=== PATIENT | female | born 1945 | race Caucasian/White ===

== ENCOUNTER → 2016-11-09 | Outpatient (REF) | payer MEDICARE, OTHER ==
[2016-11-09 15:20] LABS: INR 0.99
== END ==
LOC: M LABDRAW1 14:40
PROVIDERS: ATTEND Physical Medicine & Rehabilitation
DX: Z79.01 Long term (current) use of anticoagulants (principal)

== ENCOUNTER → 2016-12-11 | Outpatient (REF) | payer MEDICARE, OTHER | LOC: M LABDRAW1 15:47 | PROVIDERS: ATTEND Physical Medicine & Rehabilitation | DX: M53.3 Sacrococcygeal disorders, not elsewhere classified (principal); Z79.899 Other long term (current) drug therapy | CPT/HCPCS: 36415; 80307; G0480 ==

== ENCOUNTER → 2017-01-25 | Outpatient (CLI) | payer MEDICARE, OTHER ==
[~2017-01-25] MED LIST: ALEV220T22 PO; BIOF4GEL2 TOP; BIOT1CAP2 PO; CENT1TAB PO; CO Q200C PO; CYCL5TA PO; LIDO5TD TD; TRAM50TA2 PO; TYLE325T5 PO; VAGI10TA PV; VITA1CAP2 PO; [UNRECOGNIZED DRUG - CODE] PV
[2017-01-25 12:04] LABS: MEAN CORPUSCULAR HEMOGLOBIN 30.8 pg (27.0-33.0); MEAN CORPUSCULAR HGB CONC 32.6 g/dl (32.0-36.5); MEAN CORPUSCULAR VOLUME 94.3 fl (80.0-96.0); RED CELL DISTRIBUTION WIDTH 12.3 % (11.5-14.5)
[2017-01-25 12:08] LABS: INR 0.95
[2017-01-25 12:42] LABS: ALBUMIN 3.5 GM/DL (3.2-5.2); ALBUMIN/GLOBULIN RATIO 1.06 (1.00-1.93); ALKALINE PHOSPHATASE 109 U/L (45-117); ALT/SGPT 27 U/L (12-78); ANION GAP 5 MEQ/L (8-16); AST/SGOT 17 U/L (15-37); BILIRUBIN,TOTAL 0.3 MG/DL (0.2-1.0); BLOOD UREA NITROGEN 16 MG/DL (7-18); CALCIUM LEVEL 9.7 MG/DL (8.8-10.2); CARBON DIOXIDE LEVEL 33 MEQ/L (21-32); CHLORIDE LEVEL 103 MEQ/L (98-107); CREATININE FOR GFR 0.69 MG/DL (0.55-1.02); GLOMERULAR FILTRATION RATE > 60.0 (>39); GLUCOSE, FASTING 75 MG/DL (83-110); SODIUM LEVEL 141 MEQ/L (136-145); TOTAL PROTEIN 6.8 GM/DL (6.4-8.2)
--- NOTE | 2017-01-25 12:53 | REP ---
PA and lateral chest: There are no comparisons. The lung vargas are clear. The cardiac size is normal The ananda, mediastinum, and bony thorax are unremarkable. Impression: Negative PA and lateral chest. Signed by Clovis Finley MD 01/25/2017 12:46 P
--- NOTE | 2017-01-25 18:43 | ECGEPIP ---
Stationary ECG Study [facility] Test Date: 2017-01-25 Pat Name: DORETHA YE Department: Room: - Gender: F [employer]: : [id number] Requested By: Ty Ho Order Number: [id number] Reading MD: Evgeny Rasheed Measurements Intervals [place] Rate: 66 P: 44 NV: 167 QRS: 59 QRSD: 90 T: 57 QT: 373 QTc: 393 Interpretive Statements SINUS RHYTHM Comparison tracing not on file Electronically Signed On 01-25-2017 18:42:56 EDT by Evgeny Rasheed
== END ==
LOC: M ADMPAT 10:21
PROVIDERS: ATTEND Orthopaedic Surgery
DX: M16.11 Unilateral primary osteoarthritis, right hip (principal); Z79.01 Long term (current) use of anticoagulants; R39.9 Unspecified symptoms and signs involving the genitourinary system

== ENCOUNTER 2017-02-08 07:30 | Inpatient (IN) | payer MEDICARE, OTHER ==
[2017-01-25 11:16] VITALS: BP 94/66
--- NOTE | 2017-02-06 11:16 | HPE ---
DATE OF ADMISSION: 02/08/2017 ATTENDING PHYSICIAN: Ty Ho MD CHIEF COMPLAINT: Right hip osteoarthritis. HISTORY: The patient is a 71-year-old female with progressively worsening right hip pain and stiffness. She has failed to improve with conservative measures. She continues to have pain with weightbearing activities and activities of daily living. The patient has consented for an elective total right hip arthroplasty with Dr. Ho. Medical optimization completed with Mr. Kaden PA-C. CURRENT MEDICATIONS: - gabapentin 100 mg three times daily - Aleve 220 mg two by mouth daily - Biotin 1 mg daily - CoQ10 200 mg daily - lidocaine 5% 12 hours on, 12 hours off of the left knee - vitamin D3 1000 units daily - Centrum Silver one daily - Biofreeze 4% as needed - Trimo-Pete 0.025% - Vagifem 10 mcg insert vaginally one time per week - Tylenol 325 mg 1-2 every 4-6 hours as needed for pain ALLERGIES: No known drug allergies. MEDICAL CONDITIONS: Arthritis, seasonal allergies, dermatitis, hyperlipidemia, uterine prolapse. SURGICAL HISTORY: Tonsillectomy, appendectomy, cholecystectomy, carpal tunnel release, arthroscopic surgery of the knee. SOCIAL HISTORY: The patient does not use tobacco products and rarely uses alcohol. REVIEW OF SYSTEMS: The patient denies fevers, chills, nausea, vomiting, or diarrhea. She denies chest pain, shortness of breath, headaches, or lightheadedness. She denies any recent upper respiratory infection or urinary tract infection symptoms. She does continue to have right hip pain with weightbearing activities. EXAMINATION: A well nourished, well developed female. In no apparent distress. NECK: Supple without lymphadenopathy or jugular venous distention (JVD). LUNGS: Clear to auscultation bilaterally. HEART: Regular rate and rhythm. ABDOMEN: Bowel sounds present. Abdomen soft and nontender to palpation. MUSCULOSKELETAL: Inspection of the right hip shows no gross abnormalities. Her skin is intact. The patient does have decreased flexion of the hip due to pain. There was hip irritability elicited with range of motion. Her calf is soft, nontender to palpation with no palpable cords noted. VITAL SIGNS: Height 5 feet 2-1/2 inches. Weight 141.2 pounds. Temperature 97.8. Blood pressure 115/60. Heart rate 52. Respirations 10. LABORATORY DATA: Chest x-ray: Negative PA and lateral chest film. Electrocardiogram (EKG): Sinus rhythm. Urinalysis: Negative with the exception of a trace amount of leukocyte esterase and 1+ bacteria. Urine culture: Shows no growth. Prothrombin time: 12.8. INR: 0.95. Comprehensive metabolic profile: Fasting glucose decreased at 75, BUN 16, creatinine for GFR 0.69. GFR greater than 60. Sodium 141, potassium 4.0, chloride 103, carbon dioxide increased at 33, anion gap decreased at 5, calcium 9.7, AST 17, ALT 27, alkaline phosphatase 109, total bilirubin 0.3, total protein 6.8, albumin 3.5, albumin globulin ratio 1.06. Complete blood count: WBC 7.0, RBC 4.03, hemoglobin 12.4, hematocrit 38, platelet count 310, erythrocyte sedimentation rate slightly elevated at 35. Nasal and sinus culture reveal normal robe. IMPRESSION: Right hip osteoarthritis with x-rays notable for end-stage degenerative changes. PLAN: The patient has consented for an elective right total hip arthroplasty with Dr. oH. YA
[~2017-02-08] VITALS: Ht 157.5 cm; Wt 76.1 kg
[2017-02-08] MEDS: MULTIVITAMINS/MINERALS THERAP 1 TAB PO SCH (09:00)
[2017-02-08] MEDS: VITAMIN D 1,000 INTERNATIONAL UNITS TABLET PO SCH (09:00)
[2017-02-08] MEDS ORDERED: BUPIVACAINE HCL 0.25% 30 ML VIAL As Ordered ONE (10:15)
[2017-02-08] MEDS ORDERED: ceFAZolin 1GM INJ (J0690) As Ordered ONE (10:16)
[2017-02-08] MEDS ORDERED: TRANEXAMIC ACID 100 MG/ML 10ML VIAL As Ordered ONE ×2 (11:40→15:04)
[2017-02-08] MEDS ORDERED: EPINEPHrine INJ 1 MG/ML 1ML VIAL/AMP As Ordered ONE ×2 (11:41→15:04)
[2017-02-08] MEDS ORDERED: ceFAZolin SOD 1 GM in D5W MINI-BAG PLUS 50 ML IV ONE (13:45)
[2017-02-08] MEDS ORDERED: LR 1,000 ML IV SCH ×4 (13:45→18:00)
[2017-02-08] MEDS ORDERED: CYCL5TA PO (14:37)
[2017-02-08] MEDS ORDERED: fentaNYL 100 MCG/2 ML INJECTION (J3010) As Ordered ONE ×2 (16:00→16:19)
[2017-02-08] MEDS ORDERED: MIDAZOLAM INJ 2 MG/2 ML VIAL (J2250) As Ordered ONE (16:19)
[2017-02-08] MEDS ORDERED: PROPOFOL 200 MG/20 ML VIAL As Ordered ONE (16:19)
[2017-02-08] MEDS ORDERED: LIDOCAINE 2% INJ 100 MG/5 ML SDV (FOR ANES.) As Ordered ONE (16:20)
[2017-02-08] MEDS ORDERED: ONDANSETRON 4MG/2ML VIAL (J2405) As Ordered ONE (16:20)
[2017-02-08] MEDS ORDERED: WARFARIN SOD 5 MG TAB PO ONE (17:00)
[2017-02-08] MEDS ORDERED: MORPHINE PCA 1MG/ML 100ML CADD As Ordered ONE (17:28)
[2017-02-08] MEDS ORDERED: PATIENT IS CURRENTLY ON AN ON-Q PAIN BUSTER PAIN RELIEF SYSTEM XX SCH (18:00)
[2017-02-08] MEDS ORDERED: ACETAMINOPHEN TAB 650MG DOSE (2X325MG) PO PRN (18:00)
[2017-02-08] MEDS ORDERED: NALBUPHINE HCL 10 MG/ML AMP (J2300) IV PRN (18:00)
[2017-02-08] MEDS ORDERED: MORPHINE 2 MG/ML 1ML SYRINGE IV PRN (18:00)
[2017-02-08] MEDS ORDERED: ONDANSETRON 4MG/2ML VIAL (J2405) IV PRN ×3 (18:00)
[2017-02-08] MEDS ORDERED: NALOXONE INJ 0.4 MG/1 ML VIAL (J2310) IV PRN (18:00)
[2017-02-08] MEDS ORDERED: FLEET ENEMA PR PRN (18:00)
[2017-02-08] MEDS ORDERED: diphenhydrAMINE INJ 50MG/ML VIAL (J1200) IV PRN (18:00)
[2017-02-08] MEDS ORDERED: PERCOCET 5MG/325MG TAB PO PRN (18:00)
[2017-02-08] MEDS ORDERED: EPIDURAL/PCA KEYS XX PRN (18:00)
[2017-02-08] MEDS ORDERED: MORPHINE PCA 1MG/ML 100ML CADD IV PRN (18:00)
[2017-02-08] MEDS ORDERED: METOCLOPRAMIDE INJ 10MG/2ML VIAL (J2765) IV PRN (18:00)
[2017-02-08] MEDS ORDERED: fentaNYL 100 MCG/2 ML INJECTION (J3010) IV PRN (18:00)
--- NOTE | 2017-02-08 18:15 | IPN ---
DATE: 02/08/2017 The patient was seen and examined in the preoperative area. She wishes to go ahead with . She is in significant constant pain of the right hip. She understands the nature of the procedure, the risks of bleeding, infection, damage to nerves, vessels, persistent pain, wear, loosening, dislocation, leg length inequality, blood clots, medical problems, , among others. Preoperative clearance was obtained.
[2017-02-08 19:00] VITALS: BP 137/79
[2017-02-08 19:30] VITALS: BP 139/68
[2017-02-08 19:36] LABS: MEAN CORPUSCULAR HEMOGLOBIN 32.1 pg (27.0-33.0); MEAN CORPUSCULAR HGB CONC 33.1 g/dl (32.0-36.5); MEAN CORPUSCULAR VOLUME 97.2 fl (80.0-96.0); RED CELL DISTRIBUTION WIDTH 13.1 % (11.5-14.5); WHITE BLOOD COUNT 6.6 K/mm3 (4.0-10.0)
--- NOTE | 2017-02-08 19:57 | CR.PDOC ---
[facility] Consultation Consultation DATE OF CONSULTATION: 02/08/17 PRIMARY CARE PHYSICIAN: Roberto Alfonso REFERRING PROVIDER: Dr. Ho ATTENDING PHYSICIAN: Dr. Ho REASON FOR CONSULTATION/CHIEF COMPLAINT: Medical comanagement HISTORY OF PRESENT ILLNESS: This is a 71-year-old female with a past medical history of hyperlipidemia, seasonal allergies, uterine prolapse, and dermatitis who presents for an elective right hip arthroplasty. We have been consulted for medical comanagement. Patient denies chest pain/shortness of breath/palpitations. No nausea/vomiting/ abdominal pain. States she feels well this time and denies any complaints. ALLERGIES: Please see below. HOME MEDICATIONS: Please see below. PAST MEDICAL HISTORY: As per [facility] PAST SURGICAL HISTORY: Tonsillectomy, cholecystectomy, appendectomy, carpal tunnel surgery, knee surgery. FAMILY HISTORY: Noncontributory SOCIAL HISTORY: Denies tobacco or illicit drug use. Occasional alcohol. REVIEW OF SYSTEMS: HEENT: Denies sore throat/headache CARDIOVASCULAR: Denies chest pain/palpitations RESPIRATORY: No shortness of breath/cough GASTROINTESTINAL: denies nausea/vomiting GENITOURINARY: Denies dysuria/urinary urgency. MUSCULOSKELETAL: Denies myalgias/arthralgias NEUROLOGICAL: Denies any focal weakness Rest of ROS negative. PHYSICAL EXAMINATION: Vitals: (see below) General: No acute distress, laying comfortably in bed. HEENT: Moist mucous membranes. Neck: No JVD or lymphadenopathy Cardiac: RRR, No murmurs Pulm: No wheezing or rhonchi Abd: NT/ND + BS Ext: Right hip with bandage intact. No bleeding. Minimal swelling. Pain controlled. Distal pulse intact. No cyanosis LABORATORY DATA: Please see below. ASSESSMENT/PLAN: 1. Postop day #0 status post right hip arthroplasty, pain management and DVT prophylaxis per orthopedics. 2. Hyperlipidemia-continue statin DVT prophylaxis- per orthopedics Patient was followed by Dr. Desir starting 02/09/17 at 7 AM. Vital Signs/I&O Vital Signs Date Time Temp Pulse Resp B/P (MAP) Pulse Ox O2 Delivery O2 Flow Rate FiO2 02/08/17 18:20 Nasal Cannula 2.0 02/08/17 18:06 61 100 02/08/17 18:05 96.8 16 120/61 (80) Laboratory Data CBC/BMP Laboratory Tests 5/4/17 19:24 Red Blood Count 3.69 L, Mean Corpuscular Volume 97.2 H, Mean Corpuscular Hemoglobin 32.1, Mean Corpuscular Hemoglobin Concent 33.1, Red Cell Distribution Width 13.1 Allergies Coded Allergies: No Known Allergies (Unverified , 01/25/17) Home Medications Scheduled (Co Q-10) 200 Mg Cap, 200 MG PO DAILY, (Reported) (Trimo-Pete) 0.025 % Gel, 0.025 % PV 2XWK, (Reported) Biotin (Vitamin H) (Biotin) 1 Mg Cap, 1 MG PO DAILY, (Reported) Cholecalciferol (Vitamin D-3) 1,000 Unit Cap, 1,000 UNIT PO DAILY, (Reported) Estradiol Hemihydrate (Vagifem) 10 Mcg Tab, 10 MCG PV QWEEK, (Reported) Multivitamins (Centrum Silver Adult 50+) 1 Tab Tab, 1 TAB PO DAILY, (Reported) Scheduled PRN (Aleve Arthritis) 220 Mg Tab, 440 MG PO DAILYPRN PRN for PAIN, (Reported) (Biofreeze) 4 % Gel, 4 % TOP PRN PRN for PAIN, (Reported) Acetaminophen (Tylenol) 325 Mg Tab, 650 MG PO Q4HP PRN for PAIN, (Reported) Cyclobenzaprine HCl (Cyclobenzaprine HCl) 5 Mg Tab, 5 MG PO Q8H PRN for PAIN, ( Reported) Lidocaine (Lidocaine) 5 % Pad, 1 % TD Q12HP PRN for PAIN, (Reported) Tramadol HCl (Tramadol HCl) 50 Mg Tab, 50 MG PO Q6HP PRN for PAIN, (Reported) FELICIANO MAY MD February 08, 2017 19:57
[2017-02-08 20:30] VITALS: BP 137/62
[2017-02-08] MEDS: ceFAZolin SOD 1 GM in D5W MINI-BAG PLUS 50 ML IV SCH (21:10)
[2017-02-08 21:30] VITALS: BP 130/63
[2017-02-08 22:30] VITALS: BP 125/68
[2017-02-09 02:00] VITALS: BP 121/57
[2017-02-09] MEDS: ceFAZolin SOD 1 GM in D5W MINI-BAG PLUS 50 ML IV SCH (05:15)
[2017-02-09 06:00] VITALS: BP 118/56
[2017-02-09] MEDS ORDERED: ONDANSETRON 4 MG TAB (S0181) PO PRN (06:45)
[2017-02-09 07:14] LABS: MEAN CORPUSCULAR HEMOGLOBIN 31.8 pg (27.0-33.0); MEAN CORPUSCULAR HGB CONC 33.6 g/dl (32.0-36.5); MEAN CORPUSCULAR VOLUME 94.4 fl (80.0-96.0); RED CELL DISTRIBUTION WIDTH 13.2 % (11.5-14.5); WHITE BLOOD COUNT 6.4 K/mm3 (4.0-10.0)
[2017-02-09 07:20] LABS: INR 1.08
[2017-02-09 07:36] LABS: ANION GAP 6 MEQ/L (8-16); BLOOD UREA NITROGEN 13 MG/DL (7-18); CALCIUM LEVEL 8.3 MG/DL (8.8-10.2); CARBON DIOXIDE LEVEL 29 MEQ/L (21-32); CHLORIDE LEVEL 105 MEQ/L (98-107); CREATININE FOR GFR 0.75 MG/DL (0.55-1.02); GLOMERULAR FILTRATION RATE > 60.0 (>39); GLUCOSE, FASTING 117 MG/DL (83-110); POTASSIUM SERUM 3.9 MEQ/L (3.5-5.1); SODIUM LEVEL 140 MEQ/L (136-145)
--- NOTE | 2017-02-09 07:43 | RO ---
DATE OF PROCEDURE: 02/08/2017 PREOPERATIVE DIAGNOSIS: Right hip osteoarthritis. POSTOPERATIVE DIAGNOSIS: Right hip osteoarthritis. PROCEDURE: Right total hip arthroplasty using a [place] size 4 high offset size 52 cup and a 32 ball +8.5. SURGEON: Dr. Ty Ho BEAR KEEPER: Henrique Malhotra ANESTHESIA: Spinal. ESTIMATED BLOOD LOSS: 200 COMPLICATIONS: None. INDICATIONS: This is a 71-year-old woman who has had gradually worsening right hip pain. She has severe arthritis on her x-ray and she failed conservative management and wished to go with a hip replacement. She understood the nature of the procedure, the risks of bleeding, infection, damage to nerves, vessels, persistent pain, wear, loosening, dislocation, leg length inequality, blood clots, medical problems, among others. She did have a little bit of shortening on this right side compared to the left preoperatively. PROCEDURE: The patient taken to the operative room and placed in the left lateral decubitus position on the [place] positioner. All areas were padded appropriately. The right hip was prepped and draped in usual sterile fashion. We performed a time-out. A incision was made over the lateral aspect the right hip and sharp dissection was carried down to subcutaneous tissue and controlled hemostasis with the cautery. I then sized the fascia aye and divided the anterior 40% of the abductor off the femur as we gradually externally rotated the hip and exposed the neck, divided the labrum and then dislocated the hip without much difficulty. I put the leg in the bag and we used the canal initiating reamer followed by the canal finding reamer and the lateralizing reamer and then was able to ream up to a size 4. The neck cut was made with a broach as a template and this was done about three-quarters of a fingerbreadth up from the lesser trochanter. We directed our attention to the acetabulum, anterior and posterior directors were placed, removed soft tissue from around the acetabulum and then sequentially reamed up to a size 51 reamer and was able to deepen, got into good bleeding surface in a good concentric reaming. She had a slightly deficient posterior wall preop prior to reaming but we were able to get a 52 cup in in a good position and well seated. [place] hole eliminator was placed, we placed the 32 x 52 liner, impacted this in place and then directed our attention back to the femur. We broached up to a size 4 which had a good fit and was down to the level of the cut. The trial next were then used and I did need a little bit of length, I tried the +5 then I tried the high offset +5, I actually ended up with an 8.5 high offset for excellent stability, soft tissue tension was appropriate, very good stability in extension, external rotation and flexion internal rotation. There was minimal shuck in full extension. I had irrigated prior to placement of the cup. I then irrigated prior to placement of the stem and impacted in the size 4 high offset [place] stem, a good fit was noted, it was well seated. I then placed the x 36 ball and impacted in place and was able to then reduced the hip without difficulty with the access services assistant's help and put the hip through range of motions, was very pleased with the stability and range of motion of the hip. I then irrigated copiously, repaired the minimus with #1 Vicryl suture. The abductor with #1 Vicryl suture with a couple stitches being placed through the bone. I irrigated the fascia aye with #1 Vicryl and then a running Stratafix suture in each direction with the access services assistant doing one half of this. Irrigated, closed subcutaneous 2-0 Vicryl, the skin with jah, the PainBuster catheter was inserted anteriorly just of the neck and attached appropriately. Sterile dressing was applied and I she was taken to recovery room in stable condition. There were no known complications. The plan will be routine postop. The access services assistant was instrumental in holding retractors and reducing and dislocating the hip and in wound closure.
[2017-02-09] MEDS: SENOKOT S TAB PO SCH ×2 (09:07→19:40)
[2017-02-09] MEDS: MULTIVITAMINS/MINERALS THERAP 1 TAB PO SCH (09:07)
[2017-02-09] MEDS: VITAMIN D 1,000 INTERNATIONAL UNITS TABLET PO SCH (09:07)
[2017-02-09] MEDS: MOM 30ML SUSPENSION UDC PO SCH (09:07)
[2017-02-09] MEDS: MIRALAX *UNIT DOSE* 17GM PACKET PO SCH (09:07)
[2017-02-09] MEDS: MORPHINE 15 MG SA TAB PO SCH ×3 (09:08→19:45)
[2017-02-09] MEDS: PERCOCET 5MG/325MG TAB PO PRN ×3 (10:54→19:40)
[2017-02-09] MEDS ORDERED: diphenhydrAMINE 25 MG CAP PO PRN (13:45)
[2017-02-09] MEDS: CYCLOBENZAPRINE 5MG TABLET PO PRN (14:22)
[2017-02-09] MEDS ORDERED: WARFARIN SOD 5 MG TAB PO ONE (17:00)
--- NOTE | 2017-02-09 18:04 | REP ---
RIGHT HIP: PRIORS: None. There has been total right hip prosthetic device placement. The femoral and acetabular components of which are well seated and well approximated. There is no evidence of an acute fracture or dislocation. There is expected postoperative soft tissue swelling. A lateral surgical skin staple line is seen in place. IMPRESSION: Status-post THR as described above. Signed by Kt Lam DO 02/09/2017 07:20 P
[2017-02-09 22:00] VITALS: BP 104/63
[2017-02-10] MEDS: PERCOCET 5MG/325MG TAB PO PRN ×2 (05:40→21:00)
[2017-02-10 06:00] VITALS: BP 117/58
[2017-02-10 07:27] LABS: MEAN CORPUSCULAR HEMOGLOBIN 31.3 pg (27.0-33.0); MEAN CORPUSCULAR HGB CONC 32.1 g/dl (32.0-36.5); MEAN CORPUSCULAR VOLUME 97.4 fl (80.0-96.0); RED CELL DISTRIBUTION WIDTH 13.1 % (11.5-14.5); WHITE BLOOD COUNT 8.7 K/mm3 (4.0-10.0)
[2017-02-10 07:35] LABS: INR 1.41
[2017-02-10 09:17] VITALS: BP 113/64
[2017-02-10] MEDS: VITAMIN D 1,000 INTERNATIONAL UNITS TABLET PO SCH (10:49)
[2017-02-10] MEDS: MIRALAX *UNIT DOSE* 17GM PACKET PO SCH (10:49)
[2017-02-10] MEDS: SENOKOT S TAB PO SCH ×2 (10:50→20:49)
[2017-02-10] MEDS: MULTIVITAMINS/MINERALS THERAP 1 TAB PO SCH (10:50)
[2017-02-10] MEDS: MOM 30ML SUSPENSION UDC PO SCH (10:50)
[2017-02-10] MEDS: MORPHINE 15 MG SA TAB PO SCH ×2 (11:26→20:49)
[2017-02-10] MEDS: CYCLOBENZAPRINE 5MG TABLET PO PRN (12:35)
[2017-02-10 14:56] VITALS: BP 119/57
[2017-02-10] MEDS ORDERED: WARFARIN SOD 5 MG TAB PO ONE (17:00)
[2017-02-10 22:00] VITALS: BP 113/56
[2017-02-11] MEDS: PERCOCET 5MG/325MG TAB PO PRN ×4 (01:33→21:18)
[2017-02-11 06:00] VITALS: BP 116/59
[2017-02-11] MEDS ORDERED: PERC5TAB6 PO (07:55)
[2017-02-11] MEDS ORDERED: COUM2.5T11 PO (07:55)
[2017-02-11 08:18] LABS: INR 1.58
[2017-02-11] MEDS: MIRALAX *UNIT DOSE* 17GM PACKET PO SCH (08:41)
[2017-02-11] MEDS: MOM 30ML SUSPENSION UDC PO SCH (08:41)
[2017-02-11] MEDS: SENOKOT S TAB PO SCH ×2 (08:42→21:00)
[2017-02-11] MEDS: VITAMIN D 1,000 INTERNATIONAL UNITS TABLET PO SCH (08:42)
[2017-02-11] MEDS: MORPHINE 15 MG SA TAB PO SCH ×2 (08:44→21:00)
[2017-02-11] MEDS: MULTIVITAMINS/MINERALS THERAP 1 TAB PO SCH (08:45)
[2017-02-11] MEDS ORDERED: WARFARIN SOD 5 MG TAB PO ONE (17:00)
[2017-02-11] MEDS: CYCLOBENZAPRINE 5MG TABLET PO PRN (21:14)
[2017-02-11 22:00] VITALS: BP 111/56
[2017-02-12 06:00] VITALS: BP 122/58
[2017-02-12 06:52] LABS: INR 1.71
[2017-02-12] MEDS: PERCOCET 5MG/325MG TAB PO PRN ×2 (08:58→16:08)
[2017-02-12] MEDS: VITAMIN D 1,000 INTERNATIONAL UNITS TABLET PO SCH (09:00)
[2017-02-12] MEDS: MOM 30ML SUSPENSION UDC PO SCH (09:00)
[2017-02-12] MEDS: MULTIVITAMINS/MINERALS THERAP 1 TAB PO SCH (09:00)
[2017-02-12] MEDS: MORPHINE 15 MG SA TAB PO SCH (09:00)
[2017-02-12] MEDS: SENOKOT S TAB PO SCH (09:00)
[2017-02-12] MEDS: MIRALAX *UNIT DOSE* 17GM PACKET PO SCH (09:00)
== END 2017-02-12 16:30 | disposition home health service (06) | DRG 470 ==
LOC: M OR 13:36 → M MS5PR 18:17
PROVIDERS: ADMIT Orthopaedic Surgery; ATTEND Orthopaedic Surgery
PROC: 0SR902Z Replacement of Right Hip Joint with Metal on Polyethylene Synthetic Substitute, Open Approach (ICD-10-PCS; principal; 2017-02-08 16:20)
DX: M16.11 Unilateral primary osteoarthritis, right hip (principal); Z79.899 Other long term (current) drug therapy; E78.5 Hyperlipidemia, unspecified

== ENCOUNTER → 2017-02-15 | Outpatient (REF) | payer MEDICARE, OTHER ==
[~2017-02-15] MED LIST changes: +COUM2.5T11 PO; +PERC5TAB6 PO
[2017-02-15 13:53] LABS: INR 1.3
== END ==
LOC: M SHH 13:33
PROVIDERS: ATTEND Nurse Practitioner Family
DX: Z79.01 Long term (current) use of anticoagulants (principal)

== ENCOUNTER → 2017-02-19 | Outpatient (REF) | payer MEDICARE, OTHER ==
[2017-02-19 13:50] LABS: INR 1.24
== END ==
LOC: M SHH 12:58
PROVIDERS: ATTEND Nurse Practitioner Family
DX: Z79.01 Long term (current) use of anticoagulants (principal)

== ENCOUNTER → 2017-02-22 | Outpatient (REF) | payer MEDICARE, OTHER ==
[2017-02-22 12:07] LABS: INR 1.24
== END ==
LOC: M SHH 11:23
PROVIDERS: ATTEND Nurse Practitioner Family
DX: Z79.01 Long term (current) use of anticoagulants (principal)

== ENCOUNTER → 2017-02-26 | Outpatient (REF) | payer MEDICARE, OTHER ==
[2017-02-26 12:32] LABS: INR 1.39
== END ==
LOC: M SHH 12:10
PROVIDERS: ATTEND Nurse Practitioner Family
DX: Z79.01 Long term (current) use of anticoagulants (principal)

== ENCOUNTER → 2017-04-19 | Outpatient (CLI) | payer MEDICARE, OTHER ==
[~2017-04-19] MED LIST changes: -CO Q200C PO; +CO Q200C10 PO; -COUM2.5T11 PO; +COUM2.5T17 PO; -CYCL5TA PO; +CYCL5TAB PO; +PERC5TAB12 PO; -PERC5TAB6 PO
--- NOTE | 2017-04-19 14:47 | REPMRS ---
Patient History The patient states she has not had a clinical breast exam in over a year. Patient is postmenopausal. Family history of unknown cancer in father, breast cancer in sister under age 50, breast cancer in 2 maternal aunts under age 50, breast cancer in maternal grandmother, and breast cancer in maternal cousin at age 50 or over. Took hormonal contraceptives for 2 years. Took unspecified hormones for 6 months. Patient states she has lost about 15lbs since her last mammogram due to hip surgery Digital Mammo Screening Bilat: April 19, 2017 - Exam #: [id number] Bilateral CC and MLO view(s) were taken. Technologist: Gretchen Richardson, Technologist Prior study comparison: December 28, 2015, digital bilateral screening mammo, performed at [facility]. December 23, 2014, bilateral digital mammo screening bilat performed at [facility]. FINDINGS: There are scattered fibroglandular densities. There has been no change in the appearance of the mammogram from the prior studies. There is a mild amount of residual fibroglandular tissue which is fairly symmetric. There is no interval development of dominant mass, architectural distortion, or clustered microcalcification suggestive of malignancy. ASSESSMENT: BI-RADS/ACR category 1 mammogram. Negative. Recommendation Routine screening mammogram in 1 year (for women over age 40). This mammogram was interpreted with the aid of an FDA-approved computer-aided dectection system. Electronically Signed By: Clovis Martins MD 04/19/17 [id number]
== END ==
LOC: M RAD 13:55
DX: Z12.31 Encounter for screening mammogram for malignant neoplasm of breast (principal)

== ENCOUNTER → 2017-06-05 | Outpatient (CLI) | payer MEDICARE, OTHER ==
--- NOTE | 2017-06-05 15:01 | REP ---
Whole body radionuclide bone scan: History: Spondylolisthesis. Comparison bone scan is from May 2007. Technique: 22.0 mCi of technetium 99m MDP is injected and standard whole body imaging is acquired. Scintigraphic findings: There is photopenia in the region of the right femoral head and some linear increased uptake pattern in the proximal femur on the right related to right hip replacement. There is minimal arthritic uptake in the knees and in the first MTP joints of each foot. Otherwise, distribution of skeletal tracer is normal. Mild degenerative uptake is seen in the lumbosacral spine and thoracic spine. There is mild arthritic uptake in the shoulders. Impression: No evidence to suggest skeletal metastatic disease. Osteoarthritic uptake pattern. Status post right hip replacement. Signed by Porter Davey MD 06/05/2017 05:18 P
== END ==
LOC: M RAD 10:00
PROVIDERS: ATTEND Physical Medicine & Rehabilitation
DX: M43.16 Spondylolisthesis, lumbar region (principal)
CPT/HCPCS: 78306; A9503

== ENCOUNTER → 2018-07-09 | Outpatient (CLI) | payer MEDICARE, OTHER ==
[~2018-07-09] MED LIST changes: -ALEV220T22 PO; -BIOF4GEL2 TOP; -BIOT1CAP2 PO; -CENT1TAB PO; -CO Q200C10 PO; -COUM2.5T17 PO; -CYCL5TAB PO; +GASTROGRAFIN SOLUTION 30ML (Q9963) As Ordered; +ISOVUE-370 76% 100ML VIAL (Q9967) As Ordered; -LIDO5TD TD; -PERC5TAB12 PO; -TRAM50TA2 PO; -TYLE325T5 PO; -VAGI10TA PV; -VITA1CAP2 PO; -[UNRECOGNIZED DRUG - CODE] PV
== END ==
LOC: M RAD 13:18
DX: R10.31 Right lower quadrant pain (principal)
CPT/HCPCS: Q9963

== ENCOUNTER 2018-09-03 09:25 | Day surgery (SDC) | payer MEDICARE, OTHER ==
[2018-09-03] MEDS: NS 1,000 ML IV (06:30)
[2018-09-03] MEDS ORDERED: LIDOCAINE 2% INJ 100 MG/5 ML SDV (FOR ANES.) As Ordered (09:47)
[2018-09-03] MEDS ORDERED: PROPOFOL 200 MG/20 ML VIAL As Ordered (09:47)
[2018-09-03] MEDS ORDERED: GLYCOPYRROLATE INJ 0.2 MG/ML 2 ML VIAL As Ordered (11:05)
== END 2018-09-03 11:41 | disposition home or self-care (01) ==
LOC: M OPP 09:25
DX: Z12.11 Encounter for screening for malignant neoplasm of colon (principal); K64.0 First degree hemorrhoids; K57.30 Diverticulosis of large intestine without perforation or abscess without bleeding; M19.90 Unspecified osteoarthritis, unspecified site; Z86.010 Personal history of colon polyps; Z79.899 Other long term (current) drug therapy; Z86.19 Personal history of other infectious and parasitic diseases; Z98.890 Other specified postprocedural states
CPT/HCPCS: G0105

== ENCOUNTER → 2019-02-10 | Outpatient (CLI) | payer MEDICARE, OTHER ==
[~2019-02-10] MED LIST changes: +ALEV220T22 PO; +BIOF4GEL2 TOP; +BIOT1CAP2 PO; +CENT1TAB PO; +CO Q200C10 PO; +COLA100C5 PO; +COUM2.5T17 PO; +CYCL5TAB PO; +FLAX10005 PO; +GABA-1171 PO; -GASTROGRAFIN SOLUTION 30ML (Q9963) As Ordered; +HYDR1CRE28 PR; -ISOVUE-370 76% 100ML VIAL (Q9967) As Ordered; +LIDO5TD TD; +LORA-243 PO; +MIRA3350 PO; +PERC5TAB12 PO; +TRAM50TA2 PO; +TYLE325T5 PO; +VAGI10TA PV; +VITA-183 PO; +[UNRECOGNIZED DRUG - CODE] PV; +flaxseed PO
--- NOTE | 2019-02-12 12:29 | REPMRS ---
Patient History The patient states she had a clinical breast exam in January 2019.Family history of breast cancer under age 50 in sister, breast cancer under age 50 in maternal aunt, breast cancer in maternal grandmother, unknown cancer in father, breast cancer at age 50 or over in maternal aunt, breast cancer at age 50 or over in maternal cousin. Took hormonal contraceptives for 2 years. Took unspecified hormones for 6 months. No breast complaints. Digital Mammo Screening Bilat: February 10, 2019 - Exam #: [id number] Bilateral CC and MLO view(s) were taken. Technologist: Radha Evangelista, Technologist Prior study comparison: April 19, 2017, bilateral digital mammo screening bilat performed at [facility]. December 28, 2015, digital bilateral screening mammo, performed at [facility]. December 23, 2014, bilateral digital mammo screening bilat performed at [facility]. FINDINGS: There are scattered fibroglandular densities. There has been no change in the appearance of the mammogram from the prior studies. There is a mild amount of scattered fibroglandular density which is fairly symmetric. There is no interval development of dominant mass, architectural distortion, or clustered microcalcification suggestive of malignancy. 3-D tomosynthesis shows no additional findings. Assessment: BI-RADS/ACR category 1 mammogram. Negative Mammogram. Recommendation Routine screening mammogram of both breasts in 1 year (for women over age 40). This patient's Lifetime Breast Cancer RIsk is estimated at 10.8 %. This mammogram was interpreted with the aid of an FDA-approved computer-aided dectection system. Electronically Signed By: Andrew Davey MD 02/12/19 [id number]
== END ==
LOC: M RAD 13:16
DX: Z12.31 Encounter for screening mammogram for malignant neoplasm of breast (principal); Z80.3 Family history of malignant neoplasm of breast; Z92.0 Personal history of contraception

== ENCOUNTER → 2019-05-21 | Outpatient (CLI) | payer MEDICARE, OTHER ==
--- NOTE | 2019-05-21 14:09 | REP ---
Right hand series: Five views. History: Crush injury evaluation. Findings: Five views of the right hand demonstrate mild widening of the navicular lunate interval consistent with degeneration of that ligament. There is osteoarthritis at the first carpometacarpal articulation and in the first IP and first MCP joints. There are mild spurring changes in the DIP joints of the index and long finger. No fractures seen. Impression: No fracture or subluxation seen. Degenerative changes as noted above. Electronically Signed by Porter Davey MD 05/21/2019 02:01 P
== END ==
LOC: M LRY 13:11
PROVIDERS: ATTEND Nurse Practitioner Family
DX: M19.041 Primary osteoarthritis, right hand (principal); S69.91XA Unspecified injury of right wrist, hand and finger(s), initial encounter; W23.0XXA Caught, crushed, jammed, or pinched between moving objects, initial encounter; Y92.9 Unspecified place or not applicable
CPT/HCPCS: 73130; G0463

== ENCOUNTER → 2019-07-02 | Outpatient (REF) | payer MEDICARE, OTHER ==
[2019-07-02 17:15] LABS: BLOOD UREA NITROGEN 20 MG/DL (7-18); CALCIUM LEVEL 9.6 MG/DL (8.8-10.2); CARBON DIOXIDE LEVEL 29 MEQ/L (21-32); CHLORIDE LEVEL 107 MEQ/L (98-107); CREATININE FOR GFR 0.74 MG/DL (0.55-1.30); GLOMERULAR FILTRATION RATE > 60.0 (>39); GLUCOSE, FASTING 75 MG/DL (70-100); POTASSIUM SERUM 4.4 MEQ/L (3.5-5.1); SODIUM LEVEL 143 MEQ/L (136-145)
[2019-07-02 17:16] LABS: VITAMIN B12 LEVEL 811 PG/ML (247-911)
[2019-07-02 17:22] LABS: BASO % 0.5 % (0.0-1.0); EOS # 0.2 10^3/uL (0.0-0.5); EOS % 4.1 % (0.0-3.0); HEMATOCRIT 41.6 % (36.0-47.0); HEMOGLOBIN 13.6 g/dl (12.0-15.5); LYMPH # 1.6 10^3/uL (1.5-5.0); MEAN CORPUSCULAR HEMOGLOBIN 31.5 pg (27.0-33.0); MEAN CORPUSCULAR HGB CONC 32.7 g/dl (32.0-36.5); MEAN CORPUSCULAR VOLUME 96.3 fl (80.0-96.0); MONO # 0.4 10^3/uL (0.0-0.8); MONO % 6.8 % (0.0-5.0); NEUTROPHILS # 3.6 10^3/uL (1.5-8.5); NEUTROPHILS % 61.4 % (36.0-66.0); PLATELET COUNT, AUTOMATED 261 10^3/uL (150-450); RED BLOOD COUNT 4.32 10^6/uL (4.00-5.40); WHITE BLOOD COUNT 5.9 10^3/uL (4.0-10.0)
== END ==
LOC: M SFHCLERA 10:06
PROVIDERS: ATTEND Family Medicine
DX: R41.3 Other amnesia (principal)
CPT/HCPCS: 80048; 82607; 84443; 85025; 86592; 86780; G0463

== ENCOUNTER → 2019-07-18 | Outpatient (REF) | payer MEDICARE, OTHER | LOC: M SFHCLERA 10:51 | PROVIDERS: ATTEND Family Medicine | DX: A53.0 Latent syphilis, unspecified as early or late (principal); Z79.899 Other long term (current) drug therapy ==

== ENCOUNTER → 2019-07-25 | Outpatient (REF) | payer MEDICARE, OTHER | LOC: M SFHCLERA 13:02 | PROVIDERS: ATTEND Family Medicine | DX: A53.0 Latent syphilis, unspecified as early or late (principal) ==

== ENCOUNTER → 2019-08-04 | Outpatient (CLI) | payer MEDICARE, OTHER ==
[2019-08-04 17:49] LABS: BASO % 0.1 % (0.0-1.0); EOS # 0.2 10^3/uL (0.0-0.5); EOS % 2.7 % (0.0-3.0); HEMATOCRIT 39.7 % (36.0-47.0); HEMOGLOBIN 12.9 g/dl (12.0-15.5); LYMPH # 1.7 10^3/uL (1.5-5.0); MEAN CORPUSCULAR HEMOGLOBIN 30.9 pg (27.0-33.0); MEAN CORPUSCULAR HGB CONC 32.5 g/dl (32.0-36.5); MEAN CORPUSCULAR VOLUME 95.2 fl (80.0-96.0); MONO # 0.4 10^3/uL (0.0-0.8); MONO % 5.2 % (0.0-5.0); NEUTROPHILS # 4.5 10^3/uL (1.5-8.5); NEUTROPHILS % 66.6 % (36.0-66.0); PLATELET COUNT, AUTOMATED 287 10^3/uL (150-450); RED BLOOD COUNT 4.17 10^6/uL (4.00-5.40); WHITE BLOOD COUNT 6.8 10^3/uL (4.0-10.0)
[2019-08-04 17:52] LABS: ALBUMIN 3.6 GM/DL (3.2-5.2); ALT/SGPT 24 U/L (12-78); BILIRUBIN,TOTAL 0.5 MG/DL (0.2-1.0); BLOOD UREA NITROGEN 19 MG/DL (7-18); CARBON DIOXIDE LEVEL 27 MEQ/L (21-32); CHLORIDE LEVEL 107 MEQ/L (98-107); GLOMERULAR FILTRATION RATE > 60.0 (>39); GLUCOSE, FASTING 92 MG/DL (70-100); POTASSIUM SERUM 4.3 MEQ/L (3.5-5.1); RHEUMATOID FACTOR QUANT < 10.0 IU/ML (<15.0); SODIUM LEVEL 141 MEQ/L (136-145); TOTAL PROTEIN 6.4 GM/DL (6.4-8.2)
[2019-08-04 17:54] LABS: TOTAL 25(OH) VITAMIN D 48.9 NG/ML (30.0-100.0); VITAMIN B12 LEVEL 685 PG/ML (247-911)
[2019-08-04 17:56] LABS: FOLATE > 24.0 NG/ML (>5.4)
[2019-08-04 20:18] LABS: ERYTHROCYTE SEDIMENTATION RATE 7 mm/hr (0-30)
[2019-08-05 10:16] LABS: DRVV SCREEN 34.8 SEC
[2019-08-05 10:18] LABS: PTT LUPUS TYPE ANTICOAG SCREEN 0.8 (0-1.2)
[2019-08-07 00:07] LABS: IgG P18 AB Absent (.); IgG P23 AB Present (.); IgG P28 AB Absent (.); IgG P30 AB Absent (.); IgG P39 AB Absent (.); IgG P41 AB Absent (.); IgG P45 AB Absent (.); IgG P66 AB Absent (.); IgG P93 AB Absent (.); IgM P23 AB Absent (.); IgM P39 AB Absent (.); IgM P41 AB Absent (.); LYME IgG WB INTERPRETATION Negative (.); LYME IgM WB INTERPRETATION Negative (.)
[2019-08-10 00:06] LABS: ANTINUCLEAR ANTIBODIES DIRECT Negative (Negative); Lyme Disease IgG/IgM Antibodie <0.91 ISR (0.00-0.90); Lyme Disease IgM Ab Quantitati <0.80 index (0.00-0.79); VITAMIN B1 LEVEL WHOLE BLOOD 146.3 nmol/L (66.5-200.0); VITAMIN E(ALPHA TOCOPHEROL) 15.8 mg/L (9.0-29.0); VITAMIN E(GAMMA TOCOPHEROL) 0.8 mg/L (0.5-4.9)
== END ==
LOC: M LRY 10:59
PROVIDERS: ATTEND Psychiatry & Neurology Neurology
DX: R41.3 Other amnesia (principal); Z79.899 Other long term (current) drug therapy

== ENCOUNTER → 2019-10-24 | Outpatient (CLI) | payer MEDICARE, OTHER ==
--- NOTE | 2019-11-04 15:23 | DEXA ---
AP SPINE L1 - L4 1.395 1.6 3.3 LT FEMUR TOTAL 1.040 0.3 1.9 LT NECK 0.905 -1.0 0.9 RT FEMUR TOTAL Right hip replacement RT NECK Right hip replacement TOTAL BODY TOTAL OTHER COMMENTS: Normal bone densitometry of the spine. There is low bone density of the left hip. The density of the spine has decreased 1.4% since the initial exam on 07/29/2001. The spine density has decreased 1.4% since the most recent exam on 09/21/2005. The density of the left hip has decreased 4.1% since initial exam on 07/29/2001. The density of the left hip has decreased 6.1% since the most recent exam on 09/21/2005. Right hip replacement. FOLLOW-UP: Recommendation for the next bone density exam: 2 years. YA
== END ==
LOC: M WHC 12:50
PROVIDERS: ATTEND Family Medicine
DX: Z13.820 Encounter for screening for osteoporosis (principal); M81.0 Age-related osteoporosis without current pathological fracture

== ENCOUNTER → 2020-06-24 | Outpatient (CLI) | payer MEDICARE, OTHER ==
[2020-06-24 15:42] LABS: BASO % 0.3 % (0.0-1.0); EOS # 0.4 10^3/uL (0.0-0.5); EOS % 6.4 % (0.0-3.0); HEMOGLOBIN 12.9 g/dl (12.0-15.5); LYMPH # 2.3 10^3/uL (1.5-5.0); MEAN CORPUSCULAR HEMOGLOBIN 31.2 pg (27.0-33.0); MEAN CORPUSCULAR HGB CONC 33.1 g/dl (32.0-36.5); MEAN CORPUSCULAR VOLUME 94.2 fl (80.0-96.0); MONO # 0.4 10^3/uL (0.0-0.8); MONO % 7.2 % (0.0-5.0); NEUTROPHILS % 48.9 % (36.0-66.0); PLATELET COUNT, AUTOMATED 262 10^3/uL (150-450); RED BLOOD COUNT 4.14 10^6/uL (4.00-5.40); WHITE BLOOD COUNT 6.1 10^3/uL (4.0-10.0)
[2020-06-24 16:21] LABS: ALBUMIN 3.7 GM/DL (3.2-5.2); ALT/SGPT 30 U/L (12-78); BILIRUBIN,TOTAL 0.3 MG/DL (0.2-1.0); BLOOD UREA NITROGEN 27 MG/DL (7-18); CALCIUM LEVEL 9.7 MG/DL (8.8-10.2); CARBON DIOXIDE LEVEL 31 MEQ/L (21-32); CHLORIDE LEVEL 107 MEQ/L (98-107); CHOLESTEROL LEVEL 199 MG/DL (<200); CREATININE FOR GFR 0.76 MG/DL (0.55-1.30); GLOMERULAR FILTRATION RATE > 60.0 (>39); GLUCOSE, FASTING 92 MG/DL (70-100); HDL CHOLESTEROL 67 MG/DL (>40); LDL CHOLESTEROL 117 MG/DL (<100); NON-HDL-C 132 MG/DL; POTASSIUM SERUM 4.2 MEQ/L (3.5-5.1); SODIUM LEVEL 143 MEQ/L (136-145); TOTAL PROTEIN 6.5 GM/DL (6.4-8.2); TRIGLYCERIDES LEVEL 76 MG/DL (<150)
[2020-06-24 16:26] LABS: ERYTHROCYTE SEDIMENTATION RATE 7 mm/hr (0-30)
[2020-06-24 17:57] LABS: VITAMIN B12 LEVEL 726 PG/ML (247-911)
[2020-06-24 18:26] LABS: AMORPHOUS SEDIMENT SMALL (NEGATIVE); APPEARANCE, URINE HAZY (CLEAR); BACTERIA, URINE AUTO NEGATIVE (NEGATIVE); BILIRUBIN, URINE AUTO NEGATIVE (NEGATIVE); BLOOD, URINE BLOOD NEGATIVE (NEGATIVE); COLOR, URINE YELLOW (YELLOW); GLUCOSE, URINE (UA) AUTO NEGATIVE (NEGATIVE); KETONE, URINE AUTO NEGATIVE (NEGATIVE); LEUKOCYTE ESTERASE, URINE AUTO 2+ (NEGATIVE); NITRITE, URINE AUTO NEGATIVE (NEGATIVE); PROTEIN, URINE AUTO NEGATIVE (NEGATIVE); RBC, URINE AUTO 1 /HPF (0-3); SPECIFIC GRAVITY URINE AUTO 1.015 (1.002-1.035); SQUAMOUS EPITHELIAL CELL UR AU 1 /HPF (0-6); UROBILINOGEN, URINE AUTO 0.2 mg/dL (0.0-2.0); WBC, URINE AUTO 2 /HPF (0-3)
== END ==
LOC: M LAB 15:01
PROVIDERS: ATTEND Family Medicine
DX: G31.84 Mild cognitive impairment of uncertain or unknown etiology (principal); F91.9 Conduct disorder, unspecified; A53.9 Syphilis, unspecified; Z79.899 Other long term (current) drug therapy

== ENCOUNTER 2023-12-23 20:25 | Emergency (ER) | payer OTHER, MEDICARE ==
[~2023-12-23] VITALS: Ht 160 cm; Wt 68.6 kg
[2023-12-23] MEDS: NS 500 ML IV ONE (21:01)
[2023-12-23 21:12] LABS: VENOUS BASE EXCESS 1.2 (-2.0-2.0); VENOUS HCO3 26.5 MMOL/L (23.0-27.0); VENOUS O2 SATURATION 68.2 % (60.0-80.0); VENOUS PARTIAL PRESSURE CO2 44.4 mmHg (38.0-50.0); VENOUS PARTIAL PRESSURE O2 34.3 mmHg (30.0-50.0); VENOUS PH 7.393 UNITS (7.330-7.430); VENOUS STANDARD HCO3 24.8 MMOL/L; VENOUS TOTAL CO2 27.8 MMOL/L (24.0-28.0)
[2023-12-23 21:35] LABS: LIPASE 47 U/L (12-53)
[2023-12-23 21:37] LABS: AMYLASE 106 U/L (30-118)
[2023-12-23 21:38] LABS: ALKALINE PHOSPHATASE 107 U/L (46-116); ALT/SGPT 36 U/L (7.0-40); AST/SGOT 58 U/L (<34); BASO % 0.2 % (0.0-1.0); BILIRUBIN,DIRECT < 0.1 MG/DL (<0.4); BILIRUBIN,TOTAL 0.4 MG/DL (0.3-1.2); BLOOD UREA NITROGEN 19 MG/DL (9-23); CALCIUM LEVEL 9.8 MG/DL (8.3-10.6); CARBON DIOXIDE LEVEL 29 MMOL/L (20-31); CHLORIDE LEVEL 107 MMOL/L (98-107); CREATININE FOR GFR 0.79 MG/DL (0.55-1.30); EOS # 0.2 10^3/uL (0.0-0.5); EOS % 1.2 % (0.0-3.0); GLOMERULAR FILTRATION RATE > 60.0 (>39); GLUCOSE, FASTING 120 MG/DL (74-106); HEMOGLOBIN 13.7 g/dl (12.0-15.5); LYMPH # 1.7 10^3/uL (1.5-5.0); LYMPH % 12.5 % (24.0-44.0); MEAN CORPUSCULAR HEMOGLOBIN 30.8 pg (27.0-33.0); MEAN CORPUSCULAR HGB CONC 32.6 g/dl (32.0-36.5); MEAN CORPUSCULAR VOLUME 94.4 fl (80.0-96.0); MONO # 0.5 10^3/uL (0.0-0.8); MONO % 3.6 % (2.0-8.0); NEUTROPHILS # 11.2 10^3/uL (1.5-8.5); NEUTROPHILS % 81.4 % (36.0-66.0); PLATELET COUNT, AUTOMATED 213 10^3/uL (150-450); POTASSIUM SERUM 4.2 MMOL/L (3.5-5.1); RED BLOOD COUNT 4.45 10^6/uL (4.00-5.40); SODIUM LEVEL 143 MMOL/L (136-145); TOTAL PROTEIN 6.8 G/DL (5.7-8.2); WHITE BLOOD COUNT 13.8 10^3/uL (4.0-10.0)
[2023-12-23] MEDS ORDERED: ISOVUE-370 76% 100ML VIAL As Ordered ONE (21:46)
[2023-12-23] MEDS: MIDAZOLAM INJ 2MG/2ML VIAL IV STA (21:50)
[2023-12-24 01:45] VITALS: BP 100/54; TEMP 98.6; O2SAT 96
== END 2023-12-24 02:00 | disposition short-term general hospital (02) ==
LOC: M ED 20:25
DX: S32.020A Wedge compression fracture of second lumbar vertebra, initial encounter for closed fracture (principal); W17.89XA Other fall from one level to another, initial encounter; F03.90 Unspecified dementia, unspecified severity, without behavioral disturbance, psychotic disturbance, mood disturbance, and anxiety; F41.9 Anxiety disorder, unspecified; Z79.891 Long term (current) use of opiate analgesic; Z79.811 Long term (current) use of aromatase inhibitors; Z79.899 Other long term (current) drug therapy; Y92.009 Unspecified place in unspecified non-institutional (private) residence as the place of occurrence of the external cause; Y93.89 Activity, other specified; Y99.9 Unspecified external cause status
CPT/HCPCS: 70450; 71260; 72125; 74177; 80048; 80076; 82150; 82803; 83605; 83690; 85025; 86850; 86900; 86901; 93041; 94760; 96374; 99285; J2250; Q9967